=== PATIENT | male | born 1990 | race Caucasian/White ===

== ENCOUNTER 2017-02-02 12:30 | Day surgery (SDC) | payer OTHER ==
[2017-02-02] VITALS (18 sets, daily range): BP systolic 130–156; BP diastolic 65–84; PULSE 54–82; RESP 19–40; Ht 190.5 cm; Wt 79.0 kg
[~2017-02-02] VITALS: Ht 190.5 cm; Wt 79.0 kg
[2017-02-02] MEDS ORDERED: OXYC-279 PO (12:59)
[2017-02-02] MEDS ORDERED: LACTATED RINGER'S 1,000 ML IV SCH (14:30)
[2017-02-02 15:20] LABS: ADD UMIC NO; UR ASCORBIC ACID 40 mg/dL (NEGATIVE); UR BILIRUBIN (Dip) NEGATIVE (NEGATIVE); UR BLOOD (Dip) NEGATIVE (NEGATIVE); UR CLARITY CLEAR (CLEAR); UR COLOR YELLOW (YELLOW); UR GLUCOSE (Dip) NEGATIVE (NEGATIVE); UR KETONES (Dip) NEGATIVE (NEGATIVE); UR LEUKOCYTE ESTERASE (Dip) NEGATIVE Leu/ul (NEGATIVE); UR NITRITE (Dip) NEGATIVE (NEGATIVE); UR SPECIFIC GRAVITY (Dip) 1.026 (1.003-1.030); UR TOTAL PROTEIN (Dip) NEGATIVE (NEGATIVE); UR UROBILINOGEN (Dip) NEGATIVE (NEGATIVE)
[2017-02-02] MEDS ORDERED: MIDAZOLAM 1 MG/ML 2 ML INJ ONE (15:58)
[2017-02-02] MEDS ORDERED: ROPIVACAINE 0.5 % 30 ML VIAL ONE (15:59)
[2017-02-02] MEDS ORDERED: BUPIVACAINE 0.25%/EPI (SDV) 30 ML INJ ONE (15:59)
--- NOTE | 2017-02-02 16:25 | HPN ---
Date/Time of Note Date/Time of Note DATE: 02/02/17 TIME: 16:25 Interval H&P Admission Note Pt. seen H&P reviewed: No system changes KAM SOOD MD Feb 02, 2017 16:25
[2017-02-02] MEDS ORDERED: ONDANSETRON 4 MG INJ IV PRN ×2 (16:30→22:30)
[2017-02-02] MEDS ORDERED: OXYCODONE/ACETAMINOPHEN (5/325) TAB PO PRN ×3 (16:30→22:30)
[2017-02-02] MEDS ORDERED: morphine 4 MG/ML VIAL IV PRN (16:30)
[2017-02-02] MEDS ORDERED: morphine 10 MG INJ ONE (18:10)
[2017-02-02] MEDS ORDERED: NEOMYC/POLYMYX/BACIT 30 GM OINT ONE (21:03)
[2017-02-02] MEDS ORDERED: PROPOFOL 20 ML ONE (21:12)
[2017-02-02] MEDS ORDERED: ROCURONIUM 50 MG INJ ONE (21:12)
[2017-02-02] MEDS ORDERED: LIDOCAINE 2% (SDV) 5 ML INJ ONE (21:12)
[2017-02-02] MEDS ORDERED: GLYCOPYRROLATE 0.4 MG INJ ONE (21:15)
[2017-02-02] MEDS ORDERED: CEFAZOLIN 1 GM INJ ONE (21:15)
[2017-02-02] MEDS ORDERED: ONDANSETRON 4 MG INJ ONE (21:15)
[2017-02-02] MEDS ORDERED: NEOSTIGMINE 3 MG/3 ML SYRINGE ONE (21:15)
[2017-02-02] MEDS ORDERED: KETOROLAC 30 MG INJ ONE (21:45)
[2017-02-02] MEDS ORDERED: MEPERIDINE 100 MG INJ ONE (21:47)
--- NOTE | 2017-02-02 21:49 | RADRPT ---
PROCEDURE: Intraoperative imaging of the left ankle with fluoroscopy. CLINICAL INDICATION: Left ankle pain. Intraoperative. TECHNIQUE: 18 images of the left ankle were obtained in the operating room with an image intensifi er. No radiologist was in attendance. Fluoroscopy time is 105 seconds. COMPARISON: No prior study is available for comparison. FINDINGS: Surgical instruments are noted overlying the left ankle. Images demonstrate open reduction and internal fixation of the comminuted fracture of the distal sha ft of the fibula with a lateral plate and multiple screws. Surgical fixation of the distal tibia an d fibula is also noted. IMPRESSION: 1. Intraoperative imaging of the left ankle . RPTAT: QQ .Alex Thornton MD, MD Date Time Electronically viewed and signed by .Alex Thornton MD, on 02/02/2017 21:49 .R/
--- NOTE | 2017-02-02 22:04 | OPR ---
Date/Time of Note Date/Time of Note DATE: 02/02/17 TIME: 21:55 Operative Report Procedure Date: Feb 02, 2017 Preoperative Diagnosis Left ankle bimalleolar ankle fracture Left ankle syndesmotic disruption Postoperative Diagnosis Left ankle bimalleolar ankle fracture-high Lester C fibular fracture with a posterior malleolar component Left ankle syndesmotic disruption Left ankle loose body, 1.1 cm Operation Performed Left Ankle arthroscopy with extensive debridement Left Ankle arthroscopy with loose body removal Left ankle midshaft fibula open reduction internal fixation Left ankle syndesmotic open reduction internal fixation Surgeon: KAM SOOD MD Anesthesia Type: general, other (popliteal and adductor) Anesthesiologist: LÁZARO POLLARD MD Tourniquet Time: 140 min at 250 mmHg Estimated Blood Loss: minimal Transfusion Required: no Specimen: none Grafts/Implants Arthrex 8 hole recon plate Arthrex 2 hole syndesmotic buttress plate with 2 titanium tight ropes Complications: no Pt Condition Post Procedure: stable Disposition: PACU Indications 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 Operative\Procedure Findings Risk Note: Patient was explained the risks and benefits of surgery and the patient's [place] language including not limited to infection, bleeding, injury to blood vessels, nerves, ligaments or tendons. Risks of anesthesia, deep vein thrombosis and need for reduce future surgery. Patient acknowledged these risk by signing the surgical consent form. Procedure Description The patient was met in the preoperative holding area, marked with the correct operative extremity confirmed with both patient and consent. The patient was then brought back in the operative theater, placed supine on operative table, given preoperative antibiotics and preoperative regional block anesthesia. The patient was then placed in the arthroscopic thigh acosta with all bony prominences well padded with a nonsterile tourniquet placed on the operative extremity. The patient was then prepped and draped in the normal sterile fashion. All parties in the room did a timeout and everyone agreed it was the correct patient, and extremity and procedure. Initial distraction was placed across the joint and the superficial peroneal nerve had been marked out prior to distraction, and using extreme caution to avoid any injury to the neurovascular structures, the anteromedial, anterolateral, and posterolateral portals were created in the standard fashion. The arthroscope was brought into the ankle and a 21-point exam was performed showing extensive hemorrhagic scar tissue and synovitis in the ankle with extensive scar tissue in both the medial, lateral, posterior and anterior gutters. The syndesmosis was extensively debrided with one half of the shaver able to be inserted. Also noted was a osteochondral fragment off of the posterior malleolar ankle fracture that was noted arthroscopically which measured approximately 1.1 cm which was removed arthroscopically.. After thorough debridement of the anterior medial, lateral, posterior and anterior gutters. After this was done, the ankle was irrigated thoroughly with normal saline and the arthroscopes were removed. At this point, the thigh acosta was removed and the patient was well padded under both extremities and patient was then reprepped and draped, and all gloves and instruments were changed. Attention was then turned initially to the midshaft high Lester C fibular fracture. An incision was made over the midshaft of the fibula. The incision was taken down to the fibula with care taken to avoid injury to the neurovascular structures with superficial peroneal nerve identified and retracted anteriorly. The fracture was identified and reduced and fixated with a long Recon plate given the extensive length of the fracture. It was shown via fluoroscopy that the fibula was reduced and held out to show that there was fibular length and alignment and rotation had been re-achieved. Once this was shown, the wound was irrigated thoroughly. A manual external rotation stress xray was performed showing syndesmosis widening. An incision was made approximately half a centimeter above the joint line and sending proximally to the 3-1/2 cm above the joint line and taken down to the fibula. Fibula was roughened up to allow for adherence of the buttress plate and 2 syndesmotic tightropes with a buttress plate were then placed across the joint to reduce the syndesmosis. Talar tilt stress xray was performed showing no eversion stress opening and a manual external rotation stress x-ray was performed confirming no further widening of medial clear space Tourniquet was taken down at 140 minutes in hemostasis was achieved. All wounds were thoroughly irrigated and closed with initially 2-0 Vicryl, followed by 3-0 Monocryl followed by 3-0 nylon in a vertical mattress fashion. All wounds were dressed with Xeroform, antibiotic ointment, 4 x 4s, 5 ABDs were placed and the patient was placed in a well-padded short leg splint. The wounds were irrigated thoroughly prior to closure as well. At the end of the case toes are warm and well-perfused and capillary refill is pink and brisk All sponge and needle counts were correct. KAM SOOD MD Feb 02, 2017 22:03
[2017-02-02] MEDS ORDERED: morphine (1 MG/ML) 10ML SYRINGE IV PRN ×2 (22:30)
[2017-02-02] MEDS ORDERED: HYDROmorphONE (0.2 MG/ML) 10ML SYG IV PRN ×2 (22:30)
[2017-02-02] MEDS ORDERED: MEPERIDINE 25 MG INJ IV PRN (22:30)
[2017-02-02] MEDS ORDERED: FENTAnyl 50 MCG/ML VIAL IV PRN (22:30)
[2017-02-02] MEDS: FENTAnyl 50 MCG/ML VIAL IV PRN ×2 (22:48→22:56)
== END 2017-02-02 23:54 | disposition home or self-care (01) ==
LOC: SDS 12:30
PROVIDERS: ATTEND Orthopaedic Surgery
DX: S82.842A Displaced bimalleolar fracture of left lower leg, initial encounter for closed fracture (principal); X58.XXXA Exposure to other specified factors, initial encounter; Y92.89 Other specified places as the place of occurrence of the external cause; M24.072 Loose body in left ankle
CPT/HCPCS: 27814; 29898; 73610; 81003; 82306; J0690; J2175; J2250; J2270; J2405; J2795; J3010; Z7512; Z7610; J1885; J2710